=== PATIENT | female | born 1995 | race Caucasian/White ===

== ENCOUNTER 2018-06-01 07:13 | Emergency (ER) | payer OTHER ==
[2018-06-01 07:39] VITALS: BMI 19.7
[2018-06-01 07:53] VITALS: RESP 18; TEMP 98; O2SAT 98
--- NOTE | 2018-06-01 08:29 | ED PDOC ---
Arrival/HPI - General Historian: Patient - History of Present Illness Narrative History of Present Illness (Text): 06/01/18 08:26 23 yo F with history of UTI presenting to the ED with dysuria this morning. Pt endorses increased frequency, urgency, dysuria. No other acute complaints at this time. No fevers/chills, headaches, dizziness, chest pain, palpitations, abdominal pain, nausea/vomiting/diarrhea/constipation. PMHx: denies PSHx: denies Allergies: NKDA Home medications: none Family Hx: HTN--father Social Hx: denies alcohol, tobacco, illicit drug use; sexually active with Symptom Onset: Sudden Symptom Course: Unchanged Quality: Burning Severity Level: Mild Activities at Onset: Light <David Mims - Last Filed: 06/01/18 09:47> <Anish Hernández - Last Filed: 06/01/18 11:52> - General Chief Complaint: Female Genitourinary Time Seen by Provider: 06/01/18 07:28 Past Medical History - Provider Review Nursing Documentation Reviewed: Yes - Past History Past History: No Previous - Infectious Disease Hx of Infectious Diseases: None - Genitourinary/Gynecological Hx Genitourinary Disorders: Yes Other/Comment: Ovarian Cyst, Polycystic ovarian syndrome - Psychiatric Hx Psychophysiologic Disorder: No Hx Substance Use: No - Anesthesia Hx Anesthesia: No <David Mims - Last Filed: 06/01/18 09:47> Family/Social History - Physician Review Nursing Documentation Reviewed: Yes Family/Social History: Hypertension (father) Smoking Status: Light Smoker < 10 Cigarettes Daily Hx Alcohol Use: No Hx Substance Use: No <David Mims - Last Filed: 06/01/18 09:47> Allergies/Home Meds <David Mims - Last Filed: 06/01/18 09:47> <Anish Hernández - Last Filed: 06/01/18 11:52> Allergies/Adverse Reactions: Allergies No Known Allergies Allergy (Verified 06/01/18 07:53) Review of Systems - Physician Review All systems were reviewed & negative as marked: Yes <David Mims - Last Filed: 06/01/18 09:47> Physical Exam Vital Signs Reviewed: Yes Vital Signs Temp Pulse Resp BP Pulse Ox 06/01/18 07:49 98 F 78 18 107/76 98 Temperature: Afebrile Blood Pressure: Normal Pulse: Regular Respiratory Rate: Normal Appearance: Positive for: Well-Appearing, Non-Toxic, Comfortable Pain Distress: None Mental Status: Positive for: Alert and Oriented X 3 - Systems Exam Head: Present: Atraumatic, Normocephalic Pupils: Present: PERRL Extroacular Muscles: Present: EOMI Conjunctiva: Present: Normal Ears: Present: Normal Mouth: Present: Moist Mucous Membranes Pharnyx: Present: Normal Neck: Present: Normal Range of Motion Respiratory/Chest: Present: Clear to Auscultation, Good Air Exchange. No: Respiratory Distress, Accessory Muscle Use, Wheezes, Rales, Rhonchi Cardiovascular: Present: Normal S1, S2 Abdomen: Present: Normal Bowel Sounds. No: Tenderness, Distention, Rebound, Guarding, Mass/Organomegaly Back: Present: Normal Inspection Upper Extremity: Present: Normal Inspection, Normal ROM, NORMAL PULSES, Capillary Refill < 2s. No: Cyanosis, Edema Lower Extremity: Present: Normal Inspection, NORMAL PULSES, Normal ROM, Capillary Refill < 2 s. No: Edema, CALF TENDERNESS, Cyanosis, Tenderness, Swelling Neurological: Present: CN II-XII Intact, Speech Normal Skin: Present: Warm, Dry, Normal Color Psychiatric: Present: Alert, Oriented x 3, Normal Insight, Normal Concentration <David Mims - Last Filed: 06/01/18 09:47> Vital Signs Temp Pulse Resp BP Pulse Ox 06/01/18 09:32 98 F 72 18 110/69 98 06/01/18 07:49 98 F 78 18 107/76 98 <Anish Hernández - Last Filed: 06/01/18 11:52> Medical Decision Making ED Course and Treatment: 06/01/18 08:32 --UA --chlamydia/GC RNA, TMA --monitor and disposition 06/01/18 09:48 --UA: mod LE, small blood + --nitrofurantoin 100 mg PO x1 <David Mims - Last Filed: 06/01/18 09:47> ED Course and Treatment: 06/01/18 11:51 pt seen with resdient. dysuria x 1 day. no flank abd pain. pt on phone through entire ed course. suspect uti. empric antibiotcs culture and gc sent. - Lab Interpretations Lab Results: Lab Results 06/01/18 07:40: Urine HCG, Qual Negative 06/01/18 07:40: Urine Color Light yellow, Urine Appearance Clear, Urine pH 6.5, Ur Specific [place] <= 1.005, Urine Protein Negative, Urine Glucose (UA) Negative, Urine Ketones Negative, Urine Blood Small H, Urine Nitrate Negative, Urine Bilirubin Negative, Urine Urobilinogen 0.2, Ur Leukocyte Esterase Moderate H, Urine RBC 2 - 5, Urine WBC 10 - 15, Ur Epithelial Cells 4 - 5, Urine Bacteria Mod - Medication Orders Current Medication Orders: Discontinued Medications Nitrofurantoin Macrocrystals (Macrobid) 100 mg PO STAT STA; Protocol Stop: 06/01/18 08:56 Last Admin: 06/01/18 09:03 Dose: 100 mg <Anish Hernández - Last Filed: 06/01/18 11:52> Disposition/Present on Arrival - Present on Arrival Any Indicators Present on Arrival: No History of DVT/PE: No History of Uncontrolled Diabetes: No Urinary Catheter: No History of Decub. Ulcer: No History Surgical Site Infection Following: None - Disposition Have Diagnosis and Disposition been Completed?: Yes Disposition Time: 09:50 <David Mims - Last Filed: 06/01/18 09:47> <Anish Hernández - Last Filed: 06/01/18 11:52> - Disposition Diagnosis: UTI (urinary tract infection) Disposition: HOME/ ROUTINE Condition: STABLE Discharge Instructions (ExitCare): Urinary Tract Infections in Adults Additional Instructions: return to er with worsening symptoms or concerns. follow up with your doctor. Prescriptions: Nitrofurantoin Macrocrystals [Macrobid] 100 mg PO BID #20 cap Referrals: [facility] [Outside] - Follow up with primary [facility] [Outside] - Follow up with primary Forms: [place] ([place])
[2018-06-01 08:50] LABS: PH,URINE 6.5 (4.7-8.0); URINE BILIRUBIN NEGATIVE (NEGATIVE); URINE BLOOD SMALL (NEGATIVE); URINE GLUCOSE (UA) NEGATIVE (NEGATIVE); URINE LEUKOCYTE ESTERASE MODERATE Leu/uL (NEGATIVE); URINE PROTEIN NEGATIVE mg/dL (<30 mg/dL); URINE UROBILINOGEN 0.2 E.U./dL (<1 E.U./dL)
[2018-06-01 08:53] LABS: URINE APPEARANCE CLEAR (CLEAR); URINE COLOR LIGHT YELLOW (YELLOW)
[2018-06-01 08:58] LABS: URINE BACTERIA MOD (NEG)
[2018-06-01 09:50] VITALS: BP 110/69; PULSE 72
== END 2018-06-01 09:35 | disposition home or self-care (01) ==
LOC: ED 07:13
DX: N39.0 Urinary tract infection, site not specified (principal)

== ENCOUNTER 2018-09-26 08:13 | Emergency (ER) | payer OTHER ==
[2018-09-26 08:14] VITALS: BMI 19.7
--- NOTE | 2018-09-26 08:37 | ED PDOC ---
Arrival/HPI - General Chief Complaint: ENT Problem Time Seen by Provider: 09/26/18 08:24 Historian: Patient - History of Present Illness Narrative History of Present Illness (Text): 09/26/18 08:36 A 23 year old female, whose past medical history includes ovarian cysts, presents to the emergency department complaining of thyroid/throat pain for the past 2 days. Patient reports midline of her neck is tender to palpation and repo rts experiencing a slight subjective fever. Patient states she recently had a flu shot. Patient also notes she has a family history of thyroid problems on her mother's side. Patient denies any cough, palpitations, or any other complaints. No PMD Time/Duration: Other (2 days) Symptom Onset: Gradual Symptom Course: Unchanged Activities at Onset: Light Context: Home Past Medical History - Provider Review Nursing Documentation Reviewed: Yes - Past History Past History: No Previous - Infectious Disease Hx of Infectious Diseases: None - Cardiac Hx Cardiac Disorders: No - Pulmonary Hx Respiratory Disorders: No - Neurological Hx Neurological Disorder: No - HEENT Hx HEENT Disorder: No - Renal Hx Renal Disorder: No - Endocrine/Metabolic Hx Endocrine Disorders: No - Hematological/Oncological Hx Blood Disorders: No - Integumentary Hx Dermatological Disorder: No - Musculoskeletal/Rheumatological Hx Musculoskeletal Disorders: No - Gastrointestinal Hx Gastrointestinal Disorders: No - Genitourinary/Gynecological Hx Genitourinary Disorders: Yes Other/Comment: Ovarian Cyst, Polycystic ovarian syndrome - Psychiatric Hx Psychophysiologic Disorder: No Hx Substance Use: No - Anesthesia Hx Anesthesia: No Family/Social History - Physician Review Nursing Documentation Reviewed: Yes Family/Social History: No Known Family HX Smoking Status: Former Smoker Hx Alcohol Use: Yes Frequency of alcohol use: Socially Hx Substance Use: No Allergies/Home Meds Allergies/Adverse Reactions: Allergies No Known Allergies Allergy (Verified 09/26/18 08:33) Home Medications: Home Meds Medication Instructions Recorded Confirmed No Known Home Med 09/26/18 09/26/18 Review of Systems - Physician Review All systems were reviewed & negative as marked: Yes - Review of Systems Constitutional: Fevers (slight fever) ENT: Other (thyroid/throat pain) Respiratory: absent: Cough Cardiovascular: absent: Palpitations Physical Exam Vital Signs Reviewed: Yes Vital Signs Temp Pulse Resp BP Pulse Ox 09/26/18 08:24 97.7 F 82 17 130/75 100 Temperature: Afebrile Blood Pressure: Normal Pulse: Regular Respiratory Rate: Normal - Systems Exam Head: Present: Atraumatic, Normocephalic Pupils: Present: PERRL Extroacular Muscles: Present: EOMI Conjunctiva: Present: Normal Neck: Present: MIDLINE TENDERNESS (mild midline tenderness), Other (normal thyroid exam, no swelling or enlargment) Respiratory/Chest: Present: Clear to Auscultation, Good Air Exchange. No: Respiratory Distress, Accessory Muscle Use Cardiovascular: Present: Regular Rate and Rhythm, Normal S1, S2. No: Murmurs Abdomen: No: Tenderness, Distention, Peritoneal Signs Back: Present: Normal Inspection Upper Extremity: Present: Normal Inspection. No: Cyanosis, Edema Lower Extremity: Present: Normal Inspection. No: Edema Neurological: Present: GCS=15, CN II-XII Intact, Speech Normal Skin: Present: Warm, Dry, Normal Color. No: Rashes Psychiatric: Present: Alert, Oriented x 3, Normal Insight, Normal Concentration Medical Decision Making ED Course and Treatment: 09/26/18 08:38 Impression: 23 [facility]at [facility]. Plan: -- CMP -- Thyroid stimulating hormone -- CBC -- Tylenol -- Reassess and disposition Prior Visits: Notes and results from previous visits were reviewed. Progress Notes: - Scribe Statement The provider has reviewed the documentation as recorded by the Scribgregory Colbert All medical record entries made by the Scribe were at my direction and personally dictated by me. I have reviewed the chart and agree that the record accurately reflects my personal performance of the history, physical exam, medical decision making, and the department course for this patient. I have also personally directed, reviewed, and agree with the discharge instructions and disposition. Disposition/Present on Arrival - Present on Arrival Any Indicators Present on Arrival: No History of DVT/PE: No History of Uncontrolled Diabetes: No Urinary Catheter: No History of Decub. Ulcer: No History Surgical Site Infection Following: None - Disposition Have Diagnosis and Disposition been Completed?: Yes Diagnosis: Neck pain Disposition: HOME/ ROUTINE Disposition Time: 10:34 Condition: GOOD Discharge Instructions (ExitCare): Neck Pain Additional Instructions: Follow up with Dr Soto for repeat TSH and call as soons as possible for an appointment. Referrals: Loretta Soto MD [Medical Doctor] - Follow up with primary Forms: [facility] (Portuguese)
[2018-09-26 09:02] LABS: BASO # 0.04 K/mm3 (0.0-2.0); BASO % 0.4 % (0.0-3.0); EOS % 0.3 % (1.5-5.0); HEMOGLOBIN 13.8 g/dL (12.0-16.0); LYMPH # 1.8 (1.2-3.4); LYMPH % 20.3 % (22.0-35.0); MEAN CELL VOLUME 88.2 fl (80.0-105.0); MEAN CORPUSCULAR HEMOGLOBIN 29.6 pg (25.0-35.0); MEAN CORPUSCULAR HGB CONC 33.5 g/dl (31.0-37.0); MEAN PLATELET VOLUME 9.1 fl (7.0-11.0); MONO # 0.7 (0.1-0.6); RBC 4.67 10^6/uL (3.5-6.1); RED CELL DISTRIBUTION WIDTH 13.4 % (11.5-14.5); WHITE BLOOD COUNT 8.9 10^3/uL (4.5-11.0)
[2018-09-26 09:17] LABS: ALB/GLOB RATIO 1.3 (1.1-1.8); ALBUMIN 4.5 g/dL (3.0-4.8); ALT/SGPT 19 U/L (7-56); AST/SGOT 24 U/L (14-36); BLOOD UREA NITROGEN 12 mg/dL (7-21); CALCIUM 9.3 mg/dL (8.4-10.5); GFR NON-AFRICAN AMERICAN > 60
[2018-09-26 10:26] VITALS: BP 102/71; PULSE 69; RESP 16; TEMP 98.1; O2SAT 99
== END 2018-09-26 10:33 | disposition home or self-care (01) ==
LOC: ED 08:13
DX: M54.2 Cervicalgia (principal)